=== PATIENT | female | born 1960 | race Caucasian/White ===

== ENCOUNTER → 2018-04-08 | Outpatient (REF) | payer OTHER ==
[2018-04-08 15:27] LABS: APPEARANCE, URINE HAZY (CLEAR); BACTERIA, URINE AUTO 1+ (NEGATIVE); BILIRUBIN, URINE AUTO NEGATIVE (NEGATIVE); BLOOD, URINE BLOOD NEGATIVE (NEGATIVE); COLOR, URINE YELLOW (YELLOW); GLUCOSE, URINE (UA) AUTO NEGATIVE (NEGATIVE); KETONE, URINE AUTO NEGATIVE (NEGATIVE); LEUKOCYTE ESTERASE, URINE AUTO NEGATIVE (NEGATIVE); MUCUS, URINE SMALL (NEGATIVE); NITRITE, URINE AUTO NEGATIVE (NEGATIVE); PROTEIN, URINE AUTO NEGATIVE (NEGATIVE); RBC, URINE AUTO 1 /HPF (0-3); SPECIFIC GRAVITY URINE AUTO 1.016 (1.002-1.035); SQUAMOUS EPITHELIAL CELL UR AU 3 /HPF (0-6); UROBILINOGEN, URINE AUTO 0.2 mg/dL (0.0-2.0); WBC, URINE AUTO 1 /HPF (0-3)
== END ==
LOC: M LAB REF 11:58
DX: N39.0 Urinary tract infection, site not specified (principal)

== ENCOUNTER → 2018-06-13 | Outpatient (REF) | payer OTHER | LOC: M LAB REF 14:40 | DX: R19.7 Diarrhea, unspecified (principal) ==

== ENCOUNTER 2018-07-12 10:22 | Day surgery (SDC) | payer OTHER ==
[2018-07-12] MEDS ORDERED: NS 1,000 ML IV (10:30)
[2018-07-12] MEDS ORDERED: LIDOCAINE 2% INJ 100 MG/5 ML SDV (FOR ANES.) As Ordered (11:19)
[2018-07-12] MEDS ORDERED: PROPOFOL 200 MG/20 ML VIAL As Ordered ×3 (11:19→13:05)
== END 2018-07-12 13:46 | disposition home or self-care (01) ==
LOC: M OPP 10:22
DX: R63.4 Abnormal weight loss (principal); R19.7 Diarrhea, unspecified; D12.5 Benign neoplasm of sigmoid colon; K64.8 Other hemorrhoids; I12.9 Hypertensive chronic kidney disease with stage 1 through stage 4 chronic kidney disease, or unspecified chronic kidney disease; E78.5 Hyperlipidemia, unspecified; K57.32 Diverticulitis of large intestine without perforation or abscess without bleeding; K76.9 Liver disease, unspecified; M06.9 Rheumatoid arthritis, unspecified; K21.9 Gastro-esophageal reflux disease without esophagitis; R71.8 Other abnormality of red blood cells; D72.9 Disorder of white blood cells, unspecified; Z86.718 Personal history of other venous thrombosis and embolism; M32.9 Systemic lupus erythematosus, unspecified; Z86.69 Personal history of other diseases of the nervous system and sense organs; J45.909 Unspecified asthma, uncomplicated; B91 Sequelae of poliomyelitis; N18.9 Chronic kidney disease, unspecified; Z88.1 Allergy status to other antibiotic agents; Z88.0 Allergy status to penicillin; Z79.899 Other long term (current) drug therapy; Z79.52 Long term (current) use of systemic steroids; Z80.8 Family history of malignant neoplasm of other organs or systems
CPT/HCPCS: 45385

== ENCOUNTER 2018-10-31 10:09 | Day surgery (SDC) | payer OTHER ==
[~2018-10-31 10:09] MED LIST: ACETAMINOPHEN 325 MG TAB PO; MIDAZOLAM INJ 2 MG/2 ML VIAL (J2250) As Ordered; PHENYLEPHRINE HCL 10 % OPHTH. SOL 5ML OD; PROPARACAINE 0.5% OPHTH SOL 15ML OD; fentaNYL 100 MCG/2 ML INJECTION (J3010) As Ordered
[2018-10-31] MEDS: CYCLOPENTOLATE 2% OPHTH SOLN 2ML BTL OD (12:08)
[2018-10-31] MEDS: LIDOCAINE 3.5 % 1ML OPHTH TOPICAL GEL OU (12:08)
[2018-10-31] MEDS: PHENYLEPHRINE 2.5% OPHTH SOL 2ML OD (12:08)
[2018-10-31] MEDS: TROPICAMIDE 1% OPHTH SOLN 2ML OD (12:08)
[2018-10-31] MEDS: POVIDONE-IODINE 5% OPHTH PREP SOL 30ML As Ordered (13:00)
[2018-10-31] MEDS: BALANCED SALT IRRIGATION SOLUTION 500ML BAG (FOR OR EYE MACHINE) As Ordered (13:00)
[2018-10-31] MEDS: LIDOCAINE 1% SDV 5 ML VIAL As Ordered (13:00)
[2018-10-31] MEDS: HEALON DUET PRO(HEALON 10MG/ML 0.55ML & HEALON ENDOCOAT 30MG/ML 0.85ML) As Ordered (13:00)
[2018-10-31] MEDS ORDERED: PROPOFOL 200 MG/20 ML VIAL As Ordered (13:09)
[2018-10-31] MEDS ORDERED: LIDOCAINE 2% INJ 100 MG/5 ML SDV (FOR ANES.) As Ordered (13:09)
[2018-10-31] MEDS: AcetaZOLAMIDE 500 MG ER CAP PO (13:37)
[2018-10-31] MEDS ORDERED: AcetaZOLAMIDE 500 MG ER CAP As Ordered (13:37)
[2018-10-31] MEDS ORDERED: ONDANSETRON 4MG/2ML VIAL (J2405) IV (14:15)
[2018-10-31] MEDS ORDERED: TRIMETHOBENZAMIDE 300 MG CAP PO (14:15)
[2018-10-31] MEDS: KETOROLAC 0.5% OPHTH SOLN OD (14:15)
== END 2018-10-31 14:10 | disposition home or self-care (01) ==
LOC: M SDC 10:09
DX: H25.11 Age-related nuclear cataract, right eye (principal); I10 Essential (primary) hypertension; E78.00 Pure hypercholesterolemia, unspecified; E03.9 Hypothyroidism, unspecified; R73.03 Prediabetes; K57.30 Diverticulosis of large intestine without perforation or abscess without bleeding; R19.7 Diarrhea, unspecified; K21.9 Gastro-esophageal reflux disease without esophagitis; D64.9 Anemia, unspecified; D75.9 Disease of blood and blood-forming organs, unspecified; B27.90 Infectious mononucleosis, unspecified without complication; R29.898 Other symptoms and signs involving the musculoskeletal system; M06.9 Rheumatoid arthritis, unspecified; M32.9 Systemic lupus erythematosus, unspecified; G12.20 Motor neuron disease, unspecified; R51 Headache; J45.909 Unspecified asthma, uncomplicated; R06.02 Shortness of breath; Z88.0 Allergy status to penicillin; Z88.1 Allergy status to other antibiotic agents; Z91.09 Other allergy status, other than to drugs and biological substances; Z79.899 Other long term (current) drug therapy; Z79.01 Long term (current) use of anticoagulants; Z86.718 Personal history of other venous thrombosis and embolism; Z87.81 Personal history of (healed) traumatic fracture; Z99.3 Dependence on wheelchair; Z87.891 Personal history of nicotine dependence; Z90.710 Acquired absence of both cervix and uterus
CPT/HCPCS: 66984

== ENCOUNTER 2018-11-07 09:08 | Day surgery (SDC) | payer OTHER ==
[~2018-11-07 09:08] MED LIST changes: -PHENYLEPHRINE HCL 10 % OPHTH. SOL 5ML OD; +PHENYLEPHRINE HCL 10 % OPHTH. SOL 5ML OS; -PROPARACAINE 0.5% OPHTH SOL 15ML OD; +PROPARACAINE 0.5% OPHTH SOL 15ML OS
[2018-11-07] MEDS: CYCLOPENTOLATE 2% OPHTH SOLN 2ML BTL OS (09:46)
[2018-11-07] MEDS: PHENYLEPHRINE 2.5% OPHTH SOL 2ML OS (09:46)
[2018-11-07] MEDS: LIDOCAINE 3.5 % 1ML OPHTH TOPICAL GEL OU (09:47)
[2018-11-07] MEDS: TROPICAMIDE 1% OPHTH SOLN 2ML OS (09:47)
[2018-11-07] MEDS: TOBRAMYCIN 0.3% OPHTH SOLN 5 ML OS (09:47)
[2018-11-07] MEDS: POVIDONE-IODINE 5% OPHTH PREP SOL 30ML As Ordered (10:00)
[2018-11-07] MEDS: BALANCED SALT IRRIGATION SOLUTION 500ML BAG (FOR OR EYE MACHINE) As Ordered (10:05)
[2018-11-07] MEDS: HEALON DUET PRO(HEALON 10MG/ML 0.55ML & HEALON ENDOCOAT 30MG/ML 0.85ML) As Ordered (10:05)
[2018-11-07] MEDS: LIDOCAINE 1% SDV 5 ML VIAL As Ordered (10:05)
[2018-11-07] MEDS ORDERED: PROPOFOL 200 MG/20 ML VIAL As Ordered (10:09)
[2018-11-07] MEDS ORDERED: LIDOCAINE 2% INJ 100 MG/5 ML SDV (FOR ANES.) As Ordered (10:10)
[2018-11-07] MEDS ORDERED: KETOROLAC 0.5% OPHTH SOLN OS (11:00)
[2018-11-07] MEDS ORDERED: AcetaZOLAMIDE 500 MG ER CAP PO (11:00)
[2018-11-07] MEDS ORDERED: TRIMETHOBENZAMIDE 300 MG CAP PO (11:00)
== END 2018-11-07 10:54 | disposition home or self-care (01) ==
LOC: M SDC 09:08
DX: H25.12 Age-related nuclear cataract, left eye (principal); I10 Essential (primary) hypertension; M32.9 Systemic lupus erythematosus, unspecified; E78.5 Hyperlipidemia, unspecified; E03.9 Hypothyroidism, unspecified; R73.03 Prediabetes; K57.32 Diverticulitis of large intestine without perforation or abscess without bleeding; J45.909 Unspecified asthma, uncomplicated; R06.02 Shortness of breath; D18.03 Hemangioma of intra-abdominal structures; R19.7 Diarrhea, unspecified; D64.9 Anemia, unspecified; G12.20 Motor neuron disease, unspecified; M06.9 Rheumatoid arthritis, unspecified; T88.59XD Other complications of anesthesia, subsequent encounter; Q04.8 Other specified congenital malformations of brain; G14 Postpolio syndrome; Z88.0 Allergy status to penicillin; Z88.1 Allergy status to other antibiotic agents; Z91.09 Other allergy status, other than to drugs and biological substances; Z79.899 Other long term (current) drug therapy; Z86.718 Personal history of other venous thrombosis and embolism; Z87.81 Personal history of (healed) traumatic fracture; Z99.3 Dependence on wheelchair; Z87.891 Personal history of nicotine dependence; Z90.710 Acquired absence of both cervix and uterus
CPT/HCPCS: 66984

== ENCOUNTER 2020-12-20 08:57 | Emergency (ER) | payer OTHER ==
[~2020-12-20 08:57] MED LIST changes: -ACETAMINOPHEN 325 MG TAB PO; +ALLE180T33 PO; +ARAV1TAB; +FERR32TA; +IRON27TA2 PO; +LEVO100T5 PO; +MAXZTA; +MEGA1CAP3 PO; -MIDAZOLAM INJ 2 MG/2 ML VIAL (J2250) As Ordered; +MULT1TAB10 PO; +NEXI40CA PO; +OMEP1CAP73; +OXYB15TA14 PO; -PHENYLEPHRINE HCL 10 % OPHTH. SOL 5ML OS; +POTA20EL PO; +PRED25TA PO; +PROP120C PO; -PROPARACAINE 0.5% OPHTH SOL 15ML OS; +VENTAER INH; +VITA50005; +XARE20TA PO; +ZOLO50TA PO; -fentaNYL 100 MCG/2 ML INJECTION (J3010) As Ordered; +plaquenil PO; +potassium PO
[2020-12-20] MEDS ORDERED: ATROPINE SULF 1MG/10ML SYRINGE (J0461) ONE (08:58)
[2020-12-20] MEDS ORDERED: ETOMIDATE INJ 20MG/10ML VIAL ONE (08:58)
[2020-12-20] MEDS ORDERED: SODIUM BICARBONATE 8.4% INJ 50 ML SYRINGE ONE (08:58)
[2020-12-20] MEDS ORDERED: SUCCINYLCHOLINE 100 MG/5 ML SYRINGE (J0330) ONE ×2 (08:58)
[2020-12-20] MEDS ORDERED: SODIUM BICARBONATE 4.2% 0.5MEQ/ML 5ML VIAL (FOR USE FOR INFANT SYRINGE) ONE (08:58)
[2020-12-20] MEDS ORDERED: EPINEPHrine 1MG/10ML SYRINGE 1.5IN ONE (08:58)
[2020-12-20] MEDS ORDERED: LIDOCAINE 2% 5ML JELLY UROJET TOP ONE (09:15)
[2020-12-20] MEDS ORDERED: HEPARIN SOD (PORCINE) 5000UNITS/ML 1ML VIAL/SYRINGE IV ONE (09:15)
[2020-12-20] MEDS ORDERED: TENECTEPLASE 50 MG KIT (TNKase) (J3101 PER 1MG) IV ONE (09:15)
[2020-12-20] MEDS ORDERED: ONDANSETRON 4MG/2ML VIAL IV ONE (09:15)
[2020-12-20] MEDS ORDERED: ASPIRIN 81 MG CHEW TABLET PO ONE (09:15)
[2020-12-20] MEDS ORDERED: NS 1,000 ML IV ONE ×3 (09:15→09:45)
[2020-12-20] MEDS ORDERED: TENECTEPLASE 50 MG KIT (TNKase) (J3101 PER 1MG) As Ordered ONE (09:18)
[2020-12-20] MEDS ORDERED: HEPARIN DRIP 25,000 UNITS in IV 1 EA IV SCH (09:20)
[2020-12-20] MEDS ORDERED: NOREPINEPHRINE 4 MG/4 ML AMP As Ordered ONE (09:23)
[2020-12-20] MEDS ORDERED: NOREPINEPHRINE BITARTRATE 8 MG in D5W 500 ML IV SCH (09:24)
--- NOTE | 2020-12-20 09:27 | REP ---
INDICATION: CHEST PAIN. COMPARISON: 06/06/2009. TECHNIQUE: SINGLE PORTABLE AP VIEW OF THE CHEST WAS PERFORMED. FINDINGS: THERE IS NO ACUTE INFILTRATE OR PULMONARY EDEMA. LUNGS ARE CLEAR. HEART IS NOT SIGNIFICANTLY ENLARGED. MEDIASTINAL SILHOUETTE IS UNREMARKABLE. THE VISUALIZED OSSEOUS STRUCTURES ARE INTACT. IMPRESSION: NO ACUTE PULMONARY DISEASE. <Electronically signed by Taqueria Navarrete > 12/20/20 0923
[2020-12-20 09:28] LABS: HEMATOCRIT 43.9 % (36.0-47.0); HEMOGLOBIN 13.2 g/dl (12.0-15.5); MEAN CORPUSCULAR HEMOGLOBIN 25.3 pg (27.0-33.0); MEAN CORPUSCULAR HGB CONC 30.1 g/dl (32.0-36.5); MEAN CORPUSCULAR VOLUME 84.3 fl (80.0-96.0); PLATELET COUNT, AUTOMATED 457 10^3/uL (150-450); RED BLOOD COUNT 5.21 10^6/uL (4.00-5.40)
[2020-12-20 09:29] LABS: WHITE BLOOD COUNT 22.5 10^3/uL (4.0-10.0)
[2020-12-20] MEDS ORDERED: CLOPIDOGREL 300 MG TAB (PLAVIX) PO ONE (09:30)
[2020-12-20 09:38] LABS: INR 1.12; PROTHROMBIN TIME 14.7 SECONDS (12.5-14.3)
[2020-12-20 09:39] LABS: PARTIAL THROMBOPLASTIN TIME 25.1 SECONDS (24.2-38.5)
[2020-12-20] MEDS ORDERED: EPINEPHrine HCL INJ 1 MG in D5W 240 ML IV SCH (09:44)
[2020-12-20 09:54] LABS: ATYPICAL LYMPH 6 % (0-5); BASOPHILS 3 % (0-1); EOSINOPHILS 1 % (0-3); LYMPHOCYTES 40 % (16-44); METAMYELOCYTES 1 % (0-0); MONOCYTES 18 % (0-5); MYELOCYTES 1 % (0-0); NEUTROPHILS 30 % (28-66)
[2020-12-20 09:55] LABS: PLATELET ESTIMATE INCREASED (NORMAL)
[2020-12-20 09:56] LABS: ANISOCYTOSIS 1+; BLOOD UREA NITROGEN 18 MG/DL (7-18); CALCIUM LEVEL 8.9 MG/DL (8.8-10.2); CARBON DIOXIDE LEVEL 18 MEQ/L (21-32); CHLORIDE LEVEL 108 MEQ/L (98-107); CK-MB VALUE MASS 10.1 NG/ML (<3.6); CPK CREATINE PHOSPHOKINASE 141 U/L (26-192); CREATININE FOR GFR 0.85 MG/DL (0.55-1.30); GLOMERULAR FILTRATION RATE > 60.0 (>45); GLUCOSE, FASTING 369 MG/DL (70-100); MB/CK RELATIVE INDEX 7.16 (< OR =4); NT-PRO BNP 5244 PG/ML (<125); POLYCHROMASIA 1+; POTASSIUM SERUM 4.4 MEQ/L (3.5-5.1); SODIUM LEVEL 143 MEQ/L (136-145)
[2020-12-20 09:59] LABS: RSV AMPLIFICATION NEGATIVE (NEGATIVE)
[2020-12-20] MEDS ORDERED: SUCCINYLCHOLINE INJ 200 MG/10 ML VIAL (J0330) IV STA ×2 (10:45)
[2020-12-20] MEDS ORDERED: EPINEPHrine 1MG/10ML SYRINGE 1.5IN IV STA ×4 (10:45)
[2020-12-20] MEDS ORDERED: SODIUM BICARBONATE 8.4% INJ 50 ML SYRINGE IV STA ×3 (10:45)
[2020-12-20] MEDS ORDERED: ETOMIDATE INJ 20MG/10ML VIAL IV STA (10:45)
--- NOTE | 2020-12-20 17:06 | ECGEPIP ---
[facility] - ED Test Date: 2020-12-20 Pat Name: KAI BAILEY Department: Room: - Gender: Female Residential Program Coordinator: [email or web address] : 1960 Requested By: Ninfa Hernandez Order Number: [id number] Reading MD: Ninfa Hernandez Measurements Intervals [place] Rate: 107 P: 68 DC: 166 QRS: -2 QRSD: 87 T: -30 QT: 336 QTc: 450 Interpretive Statements SINUS TACHYCARDIA INFERIOR AND POSTERIOR WALL MYOCARDIAL INFARCTION, PROBABLY RECENT ACUTE NV NO PRIOR ECG FOR COMPARISON Electronically Signed on 12-20-2020 17:06:02 EST by Ninfa Hernandez
== END 2020-12-20 11:43 | disposition expired ==
LOC: M ED 08:57 → EDBD 08:57 → M ED 11:43
DX: I46.9 Cardiac arrest, cause unspecified (principal); I21.19 ST elevation (STEMI) myocardial infarction involving other coronary artery of inferior wall; R00.0 Tachycardia, unspecified; I10 Essential (primary) hypertension; J44.9 Chronic obstructive pulmonary disease, unspecified; M06.9 Rheumatoid arthritis, unspecified; M32.9 Systemic lupus erythematosus, unspecified; J30.89 Other allergic rhinitis; F17.200 Nicotine dependence, unspecified, uncomplicated; Z79.02 Long term (current) use of antithrombotics/antiplatelets; Z79.899 Other long term (current) drug therapy; Z88.8 Allergy status to other drugs, medicaments and biological substances; Z88.0 Allergy status to penicillin
CPT/HCPCS: 36415; 51702; 71045; 80047; 80048; 82550; 82553; 83605; 83880; 85025; 85610; 85730; 87631; 92950; 93005; 93041; 94760; 96365; 96375; 96376; 99285; J0330; J0461; J1644; J2405; J3101